=== PATIENT | male | born 1930 | race Caucasian/White ===

== ENCOUNTER 2017-12-07 17:13 | Inpatient (IN) | payer MEDICARE, OTHER ==
[~2017-12-07] VITALS: Ht 180.3 cm; Wt 79.8 kg
--- NOTE | 2017-12-07 17:40 | NUR ---
BIB SENT BY DR ALCANTARA FOR ELEVATED BUN/CR 84/7.5. PT AAOX3, [place]. PT STS HE HAS NO APPETITE FOR WEEKS, JUST TAKING ENSURE. ALSO HAVING ABD PAIN, N/V OFF & ON FOR MONTHS & DIARRHEA FOR OFF & ON FOR 2 WKS. PT SEEN & EVAL'D BY DR. NEGRETE. PT STABLE, NAD NOTED @ THIS TIME. PT USING HIS IPAD & f@ BS.
[2017-12-07] MEDS ORDERED: ROSU40TA22 PO (17:46)
[2017-12-07] MEDS ORDERED: EZET10TA27 PO (17:46)
[2017-12-07] MEDS ORDERED: ASPI-1152 PO (17:46)
[2017-12-07] MEDS ORDERED: FINA5TAB11 PO (17:46)
[2017-12-07] MEDS ORDERED: DESL5TAB PO (17:46)
[2017-12-07] MEDS ORDERED: OMEP40CA37 PO (17:46)
[2017-12-07] MEDS ORDERED: ACET-868 PO (17:46)
[2017-12-07] MEDS ORDERED: CHOL100044 PO (17:46)
[2017-12-07] MEDS ORDERED: METO-356 PO (17:46)
[2017-12-07] MEDS ORDERED: LEVO75TA7 PO (17:46)
[2017-12-07] MEDS ORDERED: FENO160T PO (17:46)
[2017-12-07] MEDS ORDERED: SERT50TA12 PO (17:46)
[2017-12-07 17:49] LABS: BASOPHILS % (AUTO) 0.5 % (0.0-2.0); EOSINOPHILS % (AUTO) 2.3 % (0.0-6.0); HEMATOCRIT 27 % (39-51); HEMOGLOBIN 8.8 g/dL (13.5-17.5); LYMPHOCYTES # (AUTO) 1.7 /CMM (0.8-4.8); LYMPHOCYTES % (AUTO) 25.9 % (20.0-44.0); MEAN CORPUSCULAR HEMOGLOBIN 31 PG (26.0-33.0); MEAN CORPUSCULAR HGB CONC 33 g/dl (31.0-36.0); MEAN CORPUSCULAR VOLUME 93 fL (80-96); MONOCYTES # (AUTO) 0.5 /CMM (0.1-1.30); MONOCYTES % (AUTO) 7.3 % (2.0-12.0); NEUTROPHILS # (AUTO) 4.1 /CMM (1.8-8.9); PLATELET COUNT (AUTO) 198 /CMM (150-450); RDW COEFFICIENT OF VARIATION 15.2 (11.5-15.0); RED BLOOD CELL COUNT(AUTO) 2.89 MIL/uL (4.5-6.0); WHITE BLOOD COUNT (AUTO) 6.4 K/uL (4.3-11.0)
[2017-12-07 18:07] LABS: INR 1.15 (0.87-1.13)
[2017-12-07 18:11] LABS: ALANINE AMINOTRANSFERASE 37 U/L (12-78); ALBUMIN 3.5 g/dL (3.4-5.0); ALKALINE PHOSPHATASE 45 U/L (46-116); ASPARTATE AMINOTRANSFERASE 52 U/L (15-37); BILIRUBIN,DIRECT 0.2 mg/dL (0.0-0.2); BILIRUBIN,TOTAL 0.4 mg/dL (0.2-1.0); CALCIUM, SERUM 8.4 mg/dL (8.5-10.1); CARBON DIOXIDE 23 mmol/L (21-32); CHLORIDE 101 mmol/L (98-107); CREATININE 7.3 mg/dL (0.6-1.3); GLUCOSE 124 mg/dL (74-106); LIPASE 791 U/L (73-393); POTASSIUM 3.8 mmol/L (3.5-5.1); SODIUM SERUM 137 mmol/L (136-145); TOTAL PROTEIN, SERUM 7.3 g/dL (6.4-8.2)
[2017-12-07 18:13] LABS: UREA NITROGEN, BLOOD 84 mg/dL (7-18)
--- NOTE | 2017-12-07 18:17 | NUR ---
CALLED DR MALAVE OFFICE, LEFT A VOICEMAIL.
[2017-12-07 18:37] LABS: APPEARANCE,URINE SL CLOUDY (CLEAR); BILIRUBIN,URINE NEGATIVE (NEGATIVE); BLOOD, URINE NEGATIVE Ery/uL (NEGATIVE); COLOR,URINE YELLOW (YELLOW); KETONES,URINE NEGATIVE (NEGATIVE); LEUKOCYTE ESTERASE ,URINE NEGATIVE (NEGATIVE); NITRITE, URINE NEGATIVE (NEGATIVE); PH,URINE 5.5 (5.0-8.0); PROTEIN,URINE NEGATIVE (NEGATIVE); UGLUCOSE NEGATIVE (NEGATIVE); UROBILINOGEN,URINE 0.2 EU/dL (0.2)
--- NOTE | 2017-12-07 19:21 | NUR ---
TELE [phone].
--- NOTE | 2017-12-07 19:45 | NUR ---
RN OPENING NOTES PT RECEIVED FROM ER VIA RO. A/OX4. ON ROOM AIR, BREATHING EVEN AND UNLABORED. DENIES SOB OR PAIN AT THIS TIME. IV TO LAC PATENT AND INTACT. ORIENTED PT TO ROOM AND CALL LIGHT. BED IN LOW/LOCKED POSITION WITH CALL LIGHT IN REACH. SIDE RAILS UPX2. WILL CONTINUE TO MONITOR
[2017-12-07 20:00] VITALS: BP 158/75
--- NOTE | 2017-12-07 20:46 | NUR ---
FAREED NOTES PAGED DR. ALCANTARA FOR ADMITTING ORDERS. AWAITING CALL BACK Addendum: 12/07/17 at 2115 by JED MCFADDEN RN DR. ALCANTARA CALLED BACK WITH ADMITTING ORDERS. ORDERS NOTED AND READBACK PER PROTOCOL. WILL CARRY OUT.
[2017-12-07] MEDS ORDERED: HOME MED MISCELLANEOUS XX SCH (22:00)
[2017-12-07] MEDS ORDERED: Fenofibrate 48 MG TABLET PO SCH (22:00)
[2017-12-07] MEDS ORDERED: SERTRALINE HCL 25 MG TABLET PO SCH (22:00)
[2017-12-07] MEDS: EZETIMIBE 10 MG TABLET PO SCH (22:00)
[2017-12-07] MEDS ORDERED: FINASTERIDE (5 MG) 5 MG TABLET PO SCH (22:00)
[2017-12-07] MEDS: CHOLECALCIFEROL 1,000 UNIT TABLET (VIT D3) PO SCH (22:00)
[2017-12-07] MEDS ORDERED: Fenofibrate 48 MG TABLET PO ONE (22:30)
[2017-12-07] MEDS ORDERED: SERTRALINE HCL 25 MG TABLET PO ONE (22:30)
[2017-12-07] MEDS ORDERED: ASPIRIN 81 MG TAB.CHEW PO ONE (22:30)
[2017-12-07] MEDS ORDERED: METOPROLOL SUCCINATE 25 MG TAB.SR.24H PO ONE (22:30)
[2017-12-07] MEDS ORDERED: EZETIMIBE 10 MG TABLET PO ONE (22:30)
[2017-12-07] MEDS ORDERED: CHOLECALCIFEROL 1,000 UNIT TABLET (VIT D3) PO ONE (22:30)
[2017-12-07] MEDS ORDERED: Fenofibrate 48 MG TABLET ONE (23:04)
--- NOTE | 2017-12-07 23:15 | NUR ---
MS/RN NOTES PER PT, HAS "SLIGHT ASPIRIN ALLERGY" HOWEVER STATES HE TAKES ASPIRIN AT HOME DAILY FOR RECENT MINI STROKES 2YEARS AGO, MEDICATION PROVIDED. DR. QUINTON PERALTA TO CONTINUE.
--- NOTE | 2017-12-07 23:16 | NUR ---
MS/RN NOTES VITAMIN D3 AND ZETIA SHOWING DUPLICATE ORDERS IN EMAR. ADMINISTERED THE ORDERED ONE TIME DOSE AND "NON-ADMINISTERED" THE DUPLICATES
--- NOTE | 2017-12-08 06:42 | NUR ---
MS/RN CLOSING NOTES PT WITH EYES CLOSED. EASILY AROUSABLE TO NAME. BREATHING EVEN AND UNLABORED. NO C/O SOB OR PAIN. IV TO LAC REMAINS PATENT AND INTACT. NO SIGNIFICANT CHANGES OVERNIGHT. ALL NEEDS MET. ASSISTED TO BATHROOM PRN. BED REMAINS IN LOW/LOCKED POSITION WITH CALL LIGHT IN REACH. SIDE RAILS UPX2. WILL ENDORSE TO DAY SHIFT RN ALICIA.
[2017-12-08 06:47] LABS: CALCIUM, SERUM 8.2 mg/dL (8.5-10.1); CARBON DIOXIDE 24 mmol/L (21-32); CHLORIDE 105 mmol/L (98-107); GLUCOSE 97 mg/dL (74-106); POTASSIUM 4.8 mmol/L (3.5-5.1); SODIUM SERUM 136 mmol/L (136-145)
[2017-12-08 06:49] LABS: CREATININE 7.5 mg/dL (0.6-1.3); UREA NITROGEN, BLOOD 83 mg/dL (7-18)
[2017-12-08 06:52] LABS: BASOPHILS % (AUTO) 0.5 % (0.0-2.0); EOSINOPHILS % (AUTO) 3.4 % (0.0-6.0); HEMATOCRIT 23 % (39-51); HEMOGLOBIN 7.6 g/dL (13.5-17.5); LYMPHOCYTES # (AUTO) 1.5 /CMM (0.8-4.8); LYMPHOCYTES % (AUTO) 26.2 % (20.0-44.0); MEAN CORPUSCULAR HEMOGLOBIN 32 PG (26.0-33.0); MEAN CORPUSCULAR HGB CONC 34 g/dl (31.0-36.0); MEAN CORPUSCULAR VOLUME 95 fL (80-96); MONOCYTES # (AUTO) 0.4 /CMM (0.1-1.30); MONOCYTES % (AUTO) 7.6 % (2.0-12.0); NEUTROPHILS # (AUTO) 3.5 /CMM (1.8-8.9); NEUTROPHILS % (AUTO) 62.3 % (43.0-81.0); PLATELET COUNT (AUTO) 147 /CMM (150-450); RDW COEFFICIENT OF VARIATION 15.9 (11.5-15.0); RED BLOOD CELL COUNT(AUTO) 2.39 MIL/uL (4.5-6.0); WHITE BLOOD COUNT (AUTO) 5.6 K/uL (4.3-11.0)
--- NOTE | 2017-12-08 07:05 | NUR ---
MS RN NOTES PATIENT IN BED EYES CLOSED, EASILY AROUSABLE, VERBALLY RESPONSIVE. NO ACUTE DISTRESS NOTED. BREATHING UNLABORED, NO SOB NOTED. IV ACCESS PATENT AND INTACT, NO REDNESS OR SWELLING NOTED. SAFETY MEASURES IN PLACE. CALL LIGHT WITHIN REACH.
[2017-12-08] MEDS ORDERED: PANTOPRAZOLE 40 MG TABLET.DR PO SCH (07:30)
[2017-12-08 08:00] VITALS: BP 127/63
[2017-12-08] MEDS: LEVOTHYROXINE SODIUM 75 MCG TABLET PO SCH (08:27)
[2017-12-08] MEDS ORDERED: LEVOTHYROXINE SODIUM 75 MCG TABLET PO SCH (08:30)
[2017-12-08] MEDS ORDERED: ACETAMINOPHEN 325 MG TABLET PO PRN (08:30)
[2017-12-08] MEDS: SERTRALINE HCL 25 MG TABLET PO SCH (08:32)
[2017-12-08] MEDS: CHOLECALCIFEROL 1,000 UNIT TABLET (VIT D3) PO SCH (08:32)
[2017-12-08] MEDS: FINASTERIDE (5 MG) 5 MG TABLET PO SCH (08:32)
[2017-12-08] MEDS: METOPROLOL SUCCINATE 25 MG TAB.SR.24H PO SCH (08:33)
[2017-12-08] MEDS: EZETIMIBE 10 MG TABLET PO SCH (08:33)
[2017-12-08] MEDS: ASPIRIN 81 MG TAB.CHEW PO SCH (08:34)
[2017-12-08] MEDS ORDERED: FENOFIBRATE NANOCRYS (145 MG) 145 MG TABLET PO SCH (09:00)
[2017-12-08] MEDS ORDERED: FENOFIBRATE 160MG PO SCH (09:00)
[2017-12-08] MEDS ORDERED: CHOLECALCIFEROL 1,000 UNIT TABLET (VIT D3) PO SCH (09:00)
[2017-12-08] MEDS ORDERED: Fenofibrate 48 MG TABLET PO SCH (09:00)
[2017-12-08] MEDS ORDERED: FINASTERIDE (5 MG) 5 MG TABLET PO SCH (09:00)
[2017-12-08] MEDS ORDERED: SERTRALINE HCL 50 MG TABLET PO SCH (09:00)
[2017-12-08] MEDS ORDERED: ASPIRIN EC 81 MG TABLET.DR PO SCH (09:00)
[2017-12-08] MEDS ORDERED: METOPROLOL SUCCINATE 25 MG TAB.SR.24H PO SCH (09:00)
[2017-12-08] MEDS ORDERED: EZETIMIBE 10 MG TABLET PO SCH (09:00)
[2017-12-08] MEDS: ENSURE ENLIVE CHOC 237 ML CAN PO SCH ×2 (09:12→16:30)
[2017-12-08] MEDS: DESLORATADINE 5 MG PO SCH (10:28)
--- NOTE | 2017-12-08 10:53 | NUR ---
MS RN NOTES RECEIVED NEW ORDERS FROM DR QUINTERO, NOTED AND CARRIED OUT.
--- NOTE | 2017-12-08 10:55 | NUR ---
MS RN NOTES SEEN AND EVALUATED BY DR WANG WITH NEW ORDERS MADE, NOTED AND CARRIED OUT.
[2017-12-08] MEDS ORDERED: EPOETIN ALFA (10,000 UNIT) 10,000 UNIT/ML VIAL IV ONE (11:00)
[2017-12-08] MEDS: IV D5/ 0.9% NACL 1,000 ML IV PRN (11:34)
[2017-12-08] MEDS: FLUTICASONE PROPIONATE 16 GM BOTTLE NS SCH ×2 (14:18→16:31)
[2017-12-08 16:00] VITALS: BP 130/70
--- NOTE | 2017-12-08 19:00 | NUR ---
MS RN NOTES PATIENT IN BED ALERT ORIENTED X 4. NO ACUTE DISTRESS NOTED. BREATHING UNLABORED, NO SOB NOTED. IV ACCESS PATENT AND INTACT, NO REDNESS OR SWELLING NOTED. DUE MEDICATIONS GIVEN, NO ASE NOTED. NEEDS ATTENDED AND ANTICIPATED. KEPT CLEAN, DRY AND COMFORTABLE. SAFETY MEASURES IN PLACE. CALL LIGHT WITHIN REACH. ENDORSED TO NIGHT NURSE FOR CONTINUITY OF CARE.
--- NOTE | 2017-12-08 19:25 | NUR ---
MS/RN OPENING NOTES PT AWAKE. A/OX4. REMAINS ON ROOM AIR, BREATHING EVEN AND UNLABORED. NO SOB OR PAIN AT THIS TIME. IV TO RFA PATENT AND INTACT RUNNING IVF ORDERED. BED REMAINS IN LOW/LOCKED POSITION WITH CALL LIGHT IN REACH AND UPPER SIDE RAILS UPX2. WILL CONTINUE TO MONITOR
[2017-12-08 20:00] VITALS: BP 127/66
[2017-12-08] MEDS: ATORVASTATIN 10 MG TABLET PO SCH (21:09)
[2017-12-08] MEDS ORDERED: CRESTOR 40 MG PO SCH (22:00)
[2017-12-08] MEDS ORDERED: HOME MED MISCELLANEOUS XX SCH (22:00)
--- NOTE | 2017-12-09 06:59 | NUR ---
MS/RN CLOSING NOTES PT RESTING COMFORTABLY IN BED. A/OX4. REMAINS ON ROOM AIR, BREATHING EVEN AND UNLABORED. NO SOB OR PAIN AT THIS TIME. NPO AFTER MIDNIGHT FOR PERMA CATH PLACEMENT THIS MORNING AT 0900, PT AWARE. CONSENT AND CHECKLIST SIGNED AND FLAGGED IN THE CHART. STOOL COLLECTED AND SENT TO LAB. IV TO RFA PATENT AND INTACT RUNNING IVF ORDERED. NO SIGNIFICANT CHANGES OVERNIGHT. ALL NEEDS MET. BED REMAINS IN LOW/LOCKED POSITION WITH CALL LIGHT IN REACH AND UPPER SIDE RAILS UPX2. WILL ENDORSE TO DAY SHIFT RN ALICIA.
--- NOTE | 2017-12-09 07:05 | NUR ---
MS RN NOTES PATIENT IN BED ALERT ORIENTED X 4. NO ACUTE DISTRESS NOTED. BREATHING UNLABORED, NO SOB NOTED. DENIED AND PAIN. IV ACCESS PATENT AND INTACT, NO REDNESS OR SWELLING NOTED. SAFETY MEASURES IN PLACE. CALL LIGHT WITHIN REACH. WILL CONTINUE TO MONITOR PATIENT. REMAINS NPO FOR SURGERY SCHEDULED.
[2017-12-09] MEDS: LEVOTHYROXINE SODIUM 75 MCG TABLET PO SCH (07:30)
[2017-12-09] MEDS: PANTOPRAZOLE 40 MG TABLET.DR PO SCH (07:30)
[2017-12-09 07:45] LABS: IRON, SERUM 69 ug/dl (50-175); TOTAL IRON BINDING CAPACITY 293 ug/dl (250-450)
[2017-12-09 07:51] LABS: BASOPHILS % (AUTO) 0.6 % (0.0-2.0); EOSINOPHILS % (AUTO) 3.2 % (0.0-6.0); HEMATOCRIT 22 % (39-51); HEMOGLOBIN 7.6 g/dL (13.5-17.5); LYMPHOCYTES # (AUTO) 1.2 /CMM (0.8-4.8); MEAN CORPUSCULAR HEMOGLOBIN 33 PG (26.0-33.0); MEAN CORPUSCULAR HGB CONC 34 g/dl (31.0-36.0); MEAN CORPUSCULAR VOLUME 96 fL (80-96); MONOCYTES # (AUTO) 0.4 /CMM (0.1-1.30); MONOCYTES % (AUTO) 8.4 % (2.0-12.0); NEUTROPHILS # (AUTO) 3.3 /CMM (1.8-8.9); NEUTROPHILS % (AUTO) 64.8 % (43.0-81.0); PLATELET COUNT (AUTO) 146 /CMM (150-450); RDW COEFFICIENT OF VARIATION 15.6 (11.5-15.0); RED BLOOD CELL COUNT(AUTO) 2.33 MIL/uL (4.5-6.0); WHITE BLOOD COUNT (AUTO) 5.1 K/uL (4.3-11.0)
[2017-12-09 08:00] VITALS: BP 116/63
[2017-12-09] MEDS: ENSURE ENLIVE CHOC 237 ML CAN PO SCH (08:00)
[2017-12-09] MEDS ORDERED: ANESTHESIA TRAY IN PYXIS 1 EA TRAY MC ONE (08:38)
[2017-12-09] MEDS ORDERED: LIDOCAINE HCL/PF 1% 30 ML SDV ONE (08:38)
[2017-12-09] MEDS ORDERED: HEPARIN SODIUM, PORCINE 1,000 UNIT/ML VIAL ONE (08:38)
[2017-12-09] MEDS: FLUTICASONE PROPIONATE 16 GM BOTTLE NS SCH ×2 (08:44→17:25)
--- NOTE | 2017-12-09 08:50 | NUR ---
MS RN NOTES PATIENT TRANSPORTED TO OPERATING ROOM IN STABLE CONDITION.
[2017-12-09 09:37] LABS: FERRITIN 1240 ng/mL (8-388)
--- NOTE | 2017-12-09 10:20 | NUR ---
MS RN NOTES PATIENT CAME BACK FROM OPERATING ROOM IN STABLE CONDITION, NO ACUTE DISTRESS NOTED. RCW DIALYSIS ACCESS INTACT SECURED WITH TRANSPARENT DRESSING. WITH NEW ORDERS MAY RESUME PREVIOUS DIET. NOTED AND CARRIED OUT.
[2017-12-09] MEDS: DESLORATADINE 5 MG PO SCH (10:27)
[2017-12-09] MEDS: EZETIMIBE 10 MG TABLET PO SCH (10:27)
[2017-12-09] MEDS: SERTRALINE HCL 25 MG TABLET PO SCH (10:28)
[2017-12-09] MEDS: CHOLECALCIFEROL 1,000 UNIT TABLET (VIT D3) PO SCH (10:28)
[2017-12-09] MEDS: FENOFIBRATE NANOCRYS (145 MG) 145 MG TABLET PO SCH (10:28)
[2017-12-09] MEDS: ASPIRIN 81 MG TAB.CHEW PO SCH (10:28)
[2017-12-09] MEDS: METOPROLOL SUCCINATE 25 MG TAB.SR.24H PO SCH (10:29)
[2017-12-09] MEDS: FINASTERIDE (5 MG) 5 MG TABLET PO SCH (10:31)
[2017-12-09] MEDS: ACETAMINOPHEN 325 MG TABLET PO PRN ×2 (11:59→19:41)
[2017-12-09 13:51] LABS: OCCULT BLOOD STOOL NEGATIVE (NEGATIVE)
--- NOTE | 2017-12-09 15:11 | NUR ---
MS RN NOTES SEEN AND EVALUATED BY DR PATRICK ALCANTARA WITH NEW ORDERS MADE, NOTED AND CARRIED OUT.
--- NOTE | 2017-12-09 15:20 | NUR ---
MS RN NOTES INSERTED BROWN CATHETER PER PROTOCOL. NO DISCOMFORT, NO PAIN, NO BLEEDING NOTED. PATIENT TOLERATED WELL. DRAINING CLEAR YELLOW URINE.
[2017-12-09 16:00] VITALS: BP 122/66
[2017-12-09] MEDS: NEPRO VAN 237 ML CAN PO SCH (17:24)
--- NOTE | 2017-12-09 18:44 | NUR ---
MS RN NOTES PATIENT IN BED ALERT ORIENTED X 4, FAMILY AT BEDSIDE. NO ACUTE DISTRESS NOTED. BREATHING UNLABORED, NO SOB NOTED. IV ACCESS PATENT AND INTACT, NO REDNESS OR SWELLING NOTED. BROWN CATHETER IN PLACED, DRAINING WELL. RCW DIALYSIS ACCESS SECURED WITH DRESSING. DUE MEDICATIONS GIVEN , NO ASE NOTED. NEEDS ATTENDED AND ANTICIPATED. KEPT CLEAN, DRY AND COMFORTABLE. SAFETY MEASURES IN PLACE. CALL LIGHT WITHIN REACH. WILL CONTINUE TO MONITOR PATIENT. WILL ENDORSE TO NIGHT NURSE FOR CONTINUITY OF CARE.
[2017-12-09 19:20] VITALS: BP 128/62
--- NOTE | 2017-12-09 19:25 | NUR ---
MS RN INITIAL NOTES Report received at bedside. Patient received in bed, awake and verbally responsive. Alert and oriented x4. Family at bedside. Perma-cath on right chest wall. IV on right forearm #22g: patent and intact with D5 NS @75ml/hr running. No SOB/labored breathing noted. On Nephro BID. Renal diet. Safety measures in place. Call light within reach. Will continue to monitor and assess patient.
--- NOTE | 2017-12-09 20:20 | NUR ---
MS RN NOTES Patient was brought in the bathroom. CARTOGRAPHY PROFESSOR came to the room to check on patient. CARTOGRAPHY PROFESSOR found patient standing by the sink. Patient stated, "I can't walk. I need to sit down." CARTOGRAPHY PROFESSOR assisted patient to sit on the floor and called for additional assist. Came to the room and patient remains sitting on the floor. Immediately asked the patient what happened and patient stated, "I couldn't walk. My legs are feeling weak. I asked to be sitted on the floor". Assisted patient back to bed along with CARTOGRAPHY PROFESSOR.
[2017-12-09] MEDS: ATORVASTATIN 10 MG TABLET PO SCH (21:03)
--- NOTE | 2017-12-09 22:20 | NUR ---
MS RN NOTES Bloody urine output noted in patient's barrett catheter. Patient aware. Charge nurse made aware. Paged Dr. Diez for further instructions. Awaiting orders. Addendum: 12/09/17 at 2238 by GERRY WEINBERG RN At 2227, Spoke to Dr. Diez and informed him regarding bloody urine output. No orders at the moment per .
[2017-12-09 23:22] LABS: OCCULT BLOOD STOOL NEGATIVE (NEGATIVE)
[2017-12-10 04:30] VITALS: BP 124/60
[2017-12-10] MEDS: ACETAMINOPHEN 325 MG TABLET PO PRN ×3 (04:55→21:30)
[2017-12-10 06:02] VITALS: BP 128/62
--- NOTE | 2017-12-10 07:41 | NUR ---
MS RN CLOSING NOTES Report given. Patient remained in bed, intermittently sleeping, easily aroused. Alert and oriented x3, have episodes of anxiousness and forgetfulness, verbally responsive. Complaints of pain on abdominal area with help of pain mgmt. S/P Right chest wall Perm-Cath placement with dialysis on 12/09. Next HD on 12/10. Diez cath in place with blood tinged urine output (MD aware). All needs anticipated and met. Safety measures in place. Bed in lowest position with bed alarm on and call light within reach. Endorsed to FAREED Garvey
[2017-12-10 08:00] VITALS: BP 146/71
--- NOTE | 2017-12-10 08:00 | NUR ---
rn notes received patient in the bed a/o x3, patient has no acute respiratory distress, v/s stable, encouraged to express feelings and concerns. scheduled medication administered, iv on right fa infusig D5 NS at 75 ml/hr intact, also patienthas a right chest wall PermCath intact. patient eating. no c/o pain at this time, needs attended a dnanticipated, call light within to reach, assist turn and reposition q 2hr. safety precaution maintained all the time.
[2017-12-10] MEDS: PANTOPRAZOLE 40 MG TABLET.DR PO SCH (08:54)
[2017-12-10] MEDS: FENOFIBRATE NANOCRYS (145 MG) 145 MG TABLET PO SCH (08:54)
[2017-12-10] MEDS: CHOLECALCIFEROL 1,000 UNIT TABLET (VIT D3) PO SCH (08:54)
[2017-12-10] MEDS: FINASTERIDE (5 MG) 5 MG TABLET PO SCH (08:54)
[2017-12-10] MEDS: SERTRALINE HCL 25 MG TABLET PO SCH (08:54)
[2017-12-10] MEDS: ASPIRIN 81 MG TAB.CHEW PO SCH (08:55)
[2017-12-10] MEDS: LEVOTHYROXINE SODIUM 75 MCG TABLET PO SCH (08:56)
[2017-12-10] MEDS: EZETIMIBE 10 MG TABLET PO SCH (08:56)
[2017-12-10] MEDS: DESLORATADINE 5 MG PO SCH (08:57)
[2017-12-10] MEDS: NEPRO VAN 237 ML CAN PO SCH ×2 (09:38→16:30)
[2017-12-10] MEDS: FLUTICASONE PROPIONATE 16 GM BOTTLE NS SCH ×2 (09:39→16:30)
[2017-12-10] MEDS: METOPROLOL SUCCINATE 25 MG TAB.SR.24H PO SCH (09:43)
--- NOTE | 2017-12-10 11:00 | NUR ---
rn notes patient getting HD at this time, stable resting in the bed, continued monitoring.
[2017-12-10 12:21] LABS: CALCIUM, SERUM 7.9 mg/dL (8.5-10.1); CARBON DIOXIDE 28 mmol/L (21-32); CHLORIDE 104 mmol/L (98-107); CREATININE 4.2 mg/dL (0.6-1.3); GLUCOSE 98 mg/dL (74-106); POTASSIUM 3.2 mmol/L (3.5-5.1); SODIUM SERUM 140 mmol/L (136-145); UREA NITROGEN, BLOOD 40 mg/dL (7-18)
[2017-12-10 12:24] LABS: BASOPHILS % (AUTO) 0.5 % (0.0-2.0); EOSINOPHILS % (AUTO) 1.1 % (0.0-6.0); HEMATOCRIT 22 % (39-51); HEMOGLOBIN 7.4 g/dL (13.5-17.5); LYMPHOCYTES # (AUTO) 1.2 /CMM (0.8-4.8); LYMPHOCYTES % (AUTO) 22.3 % (20.0-44.0); MEAN CORPUSCULAR HEMOGLOBIN 32 PG (26.0-33.0); MEAN CORPUSCULAR HGB CONC 33 g/dl (31.0-36.0); MEAN CORPUSCULAR VOLUME 95 fL (80-96); MONOCYTES # (AUTO) 0.3 /CMM (0.1-1.30); MONOCYTES % (AUTO) 6.4 % (2.0-12.0); NEUTROPHILS # (AUTO) 3.7 /CMM (1.8-8.9); NEUTROPHILS % (AUTO) 69.7 % (43.0-81.0); PLATELET COUNT (AUTO) 125 /CMM (150-450); RDW COEFFICIENT OF VARIATION 15.8 (11.5-15.0); RED BLOOD CELL COUNT(AUTO) 2.33 MIL/uL (4.5-6.0); WHITE BLOOD COUNT (AUTO) 5.4 K/uL (4.3-11.0)
--- NOTE | 2017-12-10 13:30 | NUR ---
RN NOTES HD FINISHED AT THIS TIME, V/S TAKEN BP-133/57, P-86, OUTPUT WAS 300 ML. PATIENT STABLE, NO ACUTE DISTRESS. ASSIST TURN AND REPOSTION Q 2 HR.
--- NOTE | 2017-12-10 14:42 | NUR ---
RN NOTES ADMINISTERED TYLENOL 650 MG PO PRN FOR HEADACHE PER PATIENT REQUEST, CONTINUED MONITORING.
[2017-12-10 16:00] VITALS: BP 129/60
--- NOTE | 2017-12-10 18:27 | NUR ---
RN NOTES PATIENT STABLE EATING AT THIS TIME. NO C/O PAIN , NO ACUTE RESPIRATORY DISTRESS. ASSIST TURN AND REPOSTION Q 2 HR. F/C DRAIN DARK RED OUTPUT. ASSIST TRUN AND REPOSTION Q 2 HR. ENDORSED ONCOMING NURSE FOR PLAN OF CARE
--- NOTE | 2017-12-10 19:25 | NUR ---
MS RN INITIAL NOTES Report received. Patient received in bed, awake and watching television. Alert and oriented x3. No SOB/labored breathing noted. Denies any pain at the moment. Not in any type of distress. Safety measures in place. Bed in lowest position with bed alarm and call light within reach. Reinforced to patient to use the call for any assistance needed. Will continue to monitor and assess patient.
[2017-12-10 20:00] VITALS: BP 123/87
[2017-12-10] MEDS: ATORVASTATIN 10 MG TABLET PO SCH (21:30)
[2017-12-11 00:54] LABS: OCCULT BLOOD STOOL NEGATIVE (NEGATIVE)
--- NOTE | 2017-12-11 01:43 | NUR ---
MS RN NOTES Patient in bed, sleeping comfortably, easily aroused. Not in any type of distress. Will continue to monitor
[2017-12-11] MEDS: IV D5/ 0.9% NACL 1,000 ML IV PRN (05:10)
[2017-12-11] MEDS: LEVOTHYROXINE SODIUM 75 MCG TABLET PO SCH (07:01)
[2017-12-11] MEDS: PANTOPRAZOLE 40 MG TABLET.DR PO SCH (07:01)
[2017-12-11] MEDS: ACETAMINOPHEN 325 MG TABLET PO PRN ×2 (07:01→21:26)
--- NOTE | 2017-12-11 07:09 | NUR ---
MS RN CLOSING NOTES Report given. Patient remained in bed, sleeping, easily aroused. Alert and oriented x3, have episodes of forgetfulness. Complained of generalized pain with help of pain mgmt. No SOB/labored breathing noted. Denies any pain at the moment. Not in any type of distress. Patient refused IV fluids. Diez cath in place with 650cc collected. All needs anticipated and met. Bed in lowest position with bed alarm and call light within reach. Endorsed to oncoming shift nurse
[2017-12-11 07:35] LABS: BASOPHILS % (AUTO) 0.2 % (0.0-2.0); EOSINOPHILS % (AUTO) 3.3 % (0.0-6.0); HEMATOCRIT 25 % (39-51); HEMOGLOBIN 8.5 g/dL (13.5-17.5); LYMPHOCYTES # (AUTO) 1.4 /CMM (0.8-4.8); LYMPHOCYTES % (AUTO) 23.2 % (20.0-44.0); MEAN CORPUSCULAR HEMOGLOBIN 32 PG (26.0-33.0); MEAN CORPUSCULAR HGB CONC 34 g/dl (31.0-36.0); MEAN CORPUSCULAR VOLUME 96 fL (80-96); MONOCYTES # (AUTO) 0.5 /CMM (0.1-1.30); MONOCYTES % (AUTO) 8.1 % (2.0-12.0); NEUTROPHILS % (AUTO) 65.2 % (43.0-81.0); PLATELET COUNT (AUTO) 129 /CMM (150-450); RDW COEFFICIENT OF VARIATION 15.6 (11.5-15.0); RED BLOOD CELL COUNT(AUTO) 2.63 MIL/uL (4.5-6.0); WHITE BLOOD COUNT (AUTO) 6.1 K/uL (4.3-11.0)
[2017-12-11 07:42] LABS: CALCIUM, SERUM 8.2 mg/dL (8.5-10.1); CARBON DIOXIDE 29 mmol/L (21-32); CHLORIDE 102 mmol/L (98-107); CREATININE 4.1 mg/dL (0.6-1.3); GLUCOSE 94 mg/dL (74-106); POTASSIUM 3.2 mmol/L (3.5-5.1); SODIUM SERUM 141 mmol/L (136-145); UREA NITROGEN, BLOOD 36 mg/dL (7-18)
[2017-12-11 08:00] VITALS: BP 123/65
[2017-12-11] MEDS: NEPRO VAN 237 ML CAN PO SCH ×2 (08:00→17:16)
--- NOTE | 2017-12-11 08:00 | NUR ---
RN NOTES RECEIVED PATIENT IN THE BED A/O X3, NO C/O PAIN AT THIS TIME, NO RESPIRATORY DISTRESS. ENCOURAGED TO EXPRESS FEELINGS AND CONCERNS. SCHEDULED MEDICATION ADMINISTERED, ASSIST TURN AND REPOSITION Q 2 HR, F/C DRAIN RED OUTPUT, CALL LIGHT WITHIN TO REACH, SAFETY PRECAUTION MAINTAINED ALL THE TIME.
[2017-12-11] MEDS: SERTRALINE HCL 25 MG TABLET PO SCH (09:59)
[2017-12-11] MEDS: FENOFIBRATE NANOCRYS (145 MG) 145 MG TABLET PO SCH (09:59)
[2017-12-11] MEDS: METOPROLOL SUCCINATE 25 MG TAB.SR.24H PO SCH (10:00)
[2017-12-11] MEDS: CHOLECALCIFEROL 1,000 UNIT TABLET (VIT D3) PO SCH (10:00)
[2017-12-11] MEDS: FINASTERIDE (5 MG) 5 MG TABLET PO SCH (10:00)
[2017-12-11] MEDS: ASPIRIN 81 MG TAB.CHEW PO SCH (10:00)
[2017-12-11] MEDS: EZETIMIBE 10 MG TABLET PO SCH (10:00)
[2017-12-11] MEDS: FLUTICASONE PROPIONATE 16 GM BOTTLE NS SCH ×2 (10:01→17:15)
[2017-12-11] MEDS: DESLORATADINE 5 MG PO SCH (10:02)
[2017-12-11] MEDS ORDERED: POTASSIUM CHLORIDE 20 MEQ TAB.PRT.SR PO SCH (11:00)
--- NOTE | 2017-12-11 13:00 | NUR ---
RN NOTES PATIENT STABLE SEEM BY DR ALCANTARA, AND DR LEONARD, PATIENT HAS NO ACUTE DISTRESS, CALL LIGHT WITHIN TO REACH, REFUSED PAIN AT THIS TIME. SAFETY PRECAUTION MAINTAINED ALL THE TIME.
[2017-12-11] MEDS ORDERED: POTASSIUM CHLORIDE 20 MEQ TAB.PRT.SR PO ONE (15:30)
[2017-12-11 15:46] VITALS: BP_SYST 112; BP_SYST 173; BP_DIAS 60; BP_DIAS 64
--- NOTE | 2017-12-11 18:30 | NUR ---
RN NOTES PATIENT STABLE, NO ACUTE RESPIRATORY DISTRESS, V/S STABLE, ASSIST TURN AND REPOSTION Q 2 HR. NEEDS ATTENDED AND ANTICIPATED. CALL LIGHT WITHIN TO REACH. ENDORSED ONCOMING NURSE FOR PLAN OF CARE.
--- NOTE | 2017-12-11 19:15 | NUR ---
MS RN INITIAL NOTES Report received. Patient received in bed, resting comfortably, awake and verbally responsive. Not in any type of distress. Diez cath in place. No SOB/labored breathing noted. Safety measures in place. Will continue to monitor and assess patient.
[2017-12-11 20:00] VITALS: BP 104/57
[2017-12-11] MEDS: ATORVASTATIN 10 MG TABLET PO SCH (21:26)
--- NOTE | 2017-12-12 06:47 | NUR ---
MS RN NOTE PT'S URINE OUTPUT NOTED TO BE 750 ML, RED COLOR. DR ALCANTARA IS AWARE. WILL ENDORSE TO AM RN TO F/U WITH DR. ALCANTARA IN AM.
--- NOTE | 2017-12-12 06:47 | NUR ---
MS RN CLOSING NOTES Patient remained in bed, slept well @ night,easily aroused. Alert and oriented x3, have episodes of forgetfulness. No SOB/labored breathing noted. Denies any pain at the moment. Not in any type of distress. Patient refused IV fluids. Diez cath in place with 750cc output. HD in am today. All needs anticipated and met. Bed in lowest position with bed alarm on and call light within reach. safety measures in place. will Endorse to oncoming shift nurse
[2017-12-12 07:11] LABS: CARBON DIOXIDE 30 mmol/L (21-32); CHLORIDE 103 mmol/L (98-107); CREATININE 4.3 mg/dL (0.6-1.3); GLUCOSE 95 mg/dL (74-106); MAGNESIUM 1.4 mg/dL (1.8-2.4); PHOSPHORUS 2.9 mg/dL (2.5-4.9); POTASSIUM 3.5 mmol/L (3.5-5.1); SODIUM SERUM 140 mmol/L (136-145); UREA NITROGEN, BLOOD 43 mg/dL (7-18)
[2017-12-12 07:14] LABS: BASOPHILS % (AUTO) 0.4 % (0.0-2.0); HEMATOCRIT 27 % (39-51); HEMOGLOBIN 8.9 g/dL (13.5-17.5); LYMPHOCYTES # (AUTO) 1.6 /CMM (0.8-4.8); LYMPHOCYTES % (AUTO) 22.1 % (20.0-44.0); MEAN CORPUSCULAR HEMOGLOBIN 32 PG (26.0-33.0); MEAN CORPUSCULAR HGB CONC 34 g/dl (31.0-36.0); MEAN CORPUSCULAR VOLUME 97 fL (80-96); MONOCYTES # (AUTO) 0.5 /CMM (0.1-1.30); MONOCYTES % (AUTO) 7.3 % (2.0-12.0); NEUTROPHILS # (AUTO) 4.7 /CMM (1.8-8.9); NEUTROPHILS % (AUTO) 66.2 % (43.0-81.0); PLATELET COUNT (AUTO) 137 /CMM (150-450); RDW COEFFICIENT OF VARIATION 15.5 (11.5-15.0); RED BLOOD CELL COUNT(AUTO) 2.76 MIL/uL (4.5-6.0); WHITE BLOOD COUNT (AUTO) 7.2 K/uL (4.3-11.0)
--- NOTE | 2017-12-12 07:20 | NUR ---
RN OPENING NOTES RECEIVED PT. IN BED AWAKE, A&OX4. BREATHING UNLABORED, AND EVENLY ON ROOM AIR. PT. DENIES PAIN. NO S/S OF ACUTE DISTRESS. PT.'S SKIN IS WARM AND DRY TO TOUCH. BROWN CATHETER HAS 150 CC OF RED AND CLEAR URINE. PT. IS AWAITING HEMODIALYSIS THIS MORNING. BED IS IN LOWEST, AND LOCKED POSITION. 2 SIDE RAILS UP, AND INSTRUCTED PT. TO USE CALL LIGHT FOR ASSISTANCE. ALL NEEDS MET. WILL CONTINUE TO ASSESS AND MONITOR.
[2017-12-12 08:00] VITALS: BP 123/68
[2017-12-12] MEDS ORDERED: EPOETIN ALFA (10,000 UNIT) 10,000 UNIT/ML VIAL SQ ONE (08:00)
[2017-12-12] MEDS: PANTOPRAZOLE 40 MG TABLET.DR PO SCH (08:31)
[2017-12-12] MEDS: LEVOTHYROXINE SODIUM 75 MCG TABLET PO SCH (08:31)
[2017-12-12] MEDS: ACETAMINOPHEN 325 MG TABLET PO PRN ×2 (08:32→18:52)
[2017-12-12] MEDS: NEPRO VAN 237 ML CAN PO SCH ×2 (08:32→18:30)
[2017-12-12] MEDS: FLUTICASONE PROPIONATE 16 GM BOTTLE NS SCH ×2 (08:34→17:11)
[2017-12-12] MEDS: METOPROLOL SUCCINATE 25 MG TAB.SR.24H PO SCH (09:00)
[2017-12-12] MEDS: SERTRALINE HCL 25 MG TABLET PO SCH (10:16)
[2017-12-12] MEDS: FENOFIBRATE NANOCRYS (145 MG) 145 MG TABLET PO SCH (10:17)
[2017-12-12] MEDS: CHOLECALCIFEROL 1,000 UNIT TABLET (VIT D3) PO SCH (10:17)
[2017-12-12] MEDS: ASPIRIN 81 MG TAB.CHEW PO SCH (10:17)
[2017-12-12] MEDS: EZETIMIBE 10 MG TABLET PO SCH (10:17)
[2017-12-12] MEDS: FINASTERIDE (5 MG) 5 MG TABLET PO SCH (10:18)
[2017-12-12] MEDS: DESLORATADINE 5 MG PO SCH (10:20)
--- NOTE | 2017-12-12 10:30 | NUR ---
PT. WILL RECEIVE HEMODIALYSIS TODAY. WILL HOLD BLOOD PRESSURE MEDICATION.
[2017-12-12] MEDS ORDERED: ALTEPLASE CATHFLO 2 MG/VIAL IV ONE (13:00)
[2017-12-12 13:10] LABS: CALCITRIOL VIT D,1, 25 DIHYDRO 14.3 pg/mL (19.9-79.3)
[2017-12-12 16:00] VITALS: BP 135/69
[2017-12-12] MEDS ORDERED: Magnesium 1GM/D5W 100ML PREMIX PIGGYBACK IV ONE (16:30)
--- NOTE | 2017-12-12 16:45 | NUR ---
RN NOTES PER PHYSICAL THERAPIST. WHILE PT. WAS WALKING WITH ASSISTANCE PT.'S REPORTED FEELING DIZZY, AND PT.'S KNEES BUCKLED. A STONEWORK SUPERVISOR NEARBY HELPED SIT PT. DOWN TO A CHAIR IN PT.'S ROOM. PT.'S KNEES DID NOT TOUCH THE FLOOR PER PHYSICAL THERAPIST, NO INJURIES NOTED.
[2017-12-12] MEDS ORDERED: METOPROLOL SUCCINATE 25 MG TAB.SR.24H PO ONE (17:00)
[2017-12-12] MEDS: Magnesium 1GM/D5W 100ML PREMIX 100 ML IV SCH ×2 (18:30→20:13)
--- NOTE | 2017-12-12 19:25 | NUR ---
RN CLOSING NOTES PT. IN BED AWAKE WATCHING TV, A&OX4. BREATHING UNLABORED, AND EVENLY ON ROOM AIR. PT. DENIES PAIN. NO S/S OF ACUTE DISTRESS. PT.'S SKIN IS WARM AND DRY TO TOUCH. REMOVED FROM BROWN CATHETER 450 CC OF RED URINE. BED IS IN LOWEST, AND LOCKED POSITION. 2 SIDE RAILS UP, AND INSTRUCTED PT. TO USE CALL LIGHT FOR ASSISTANCE. ALL NEEDS MET. WILL ENDORSE REPORT TO NURSE.
--- NOTE | 2017-12-12 19:53 | NUR ---
RN MS OPENING NOTES RECEIVED PATIENT IN BED AWAKE, ALERT AND ORIENTED X4. IN STABLE CONDITION. BREATHING EVEN AND UNLABORED. NO SOB NOTED. NO COMPLAINTS OF PAIN OR DISCOMFORT. IV LINE ON RIGHT FA #22 INTACT AND PATENT. RIGHT CHEST WALL PERMACATH INTACT AND PATENT. PATIENT HAS BROWN CATH INTACT AND DRAINING RED TINGED URINE. ALL OTHER NEEDS ATTENDED TO. CALL LIGHT WITHIN REACH. BED ON LOWEST LOCKED POSITION. WILL CONTINUE TO MONITOR.
[2017-12-12 20:00] VITALS: BP 115/61
[2017-12-12] MEDS: ATORVASTATIN 10 MG TABLET PO SCH (21:24)
[2017-12-13] MEDS: LEVOTHYROXINE SODIUM 75 MCG TABLET PO SCH (06:30)
--- NOTE | 2017-12-13 07:00 | NUR ---
RN MS CLOSING NOTES PATIENT RESTING IN BED. A/O X3 WHEN AWAKE. IN STABLE CONDITION. BREATHING EVEN AND UNLABORED. NO SOB. NO COMPLAINTS OF PAIN OR DISCOMFORT. IV ON RIGHT FA#22 INTACT AND PATENT. RCW PERMA CATH INTACT AND PATENT. BROWN CATH INTACT AND DRAINING - BLOOD TINGED URINE. KEPT CLEAN, DRY, AND COMFORTABLE. ALL OTHER NEEDS ATTENDED TO. CALL LIGHT WITHIN REACH. BED ON LOWEST POSITION. WILL ENDORSE TO ONCOMING NURSE FOR CONTINUITY OF CARE.
[2017-12-13 08:00] VITALS: BP_SYST 114; BP_SYST 141; BP_DIAS 60
--- NOTE | 2017-12-13 08:12 | NUR ---
RN MS OPENING NOTES RECEIVED PATIENT IN BED AWAKE. ALERT AND ORIENTED X4. IN STABLE CONDITION. RESPIRATIONS EVEN AND UNLABORED. NO SOB NOTED. NO COMPLAINTS OF PAIN OR DISCOMFORT. IV LINE ON RIGHT FA #22 INTACT AND PATENT. RIGHT UPPER CHEST PERMA CATH INTACT AND PATENT NO S/S OF BLEEDING NOTED. KEPT CLEAN DRY AND COMFORTABLE. CALL LIGHT WITHIN REACH. BED ON LOWEST LOCKED POSITION. WILL CONTINUE TO MONITOR.
[2017-12-13] MEDS: ASPIRIN 81 MG TAB.CHEW PO SCH (08:38)
[2017-12-13] MEDS: SERTRALINE HCL 25 MG TABLET PO SCH (08:39)
[2017-12-13] MEDS: EZETIMIBE 10 MG TABLET PO SCH (08:39)
[2017-12-13] MEDS: PANTOPRAZOLE 40 MG TABLET.DR PO SCH (08:39)
[2017-12-13] MEDS: FINASTERIDE (5 MG) 5 MG TABLET PO SCH (08:40)
[2017-12-13] MEDS: FENOFIBRATE NANOCRYS (145 MG) 145 MG TABLET PO SCH (08:40)
[2017-12-13] MEDS: METOPROLOL SUCCINATE 25 MG TAB.SR.24H PO SCH (08:40)
[2017-12-13] MEDS: CHOLECALCIFEROL 1,000 UNIT TABLET (VIT D3) PO SCH (08:40)
[2017-12-13] MEDS: DESLORATADINE 5 MG PO SCH (08:44)
[2017-12-13] MEDS: FLUTICASONE PROPIONATE 16 GM BOTTLE NS SCH ×2 (08:49→16:39)
[2017-12-13] MEDS: NEPRO VAN 237 ML CAN PO SCH ×2 (09:21→16:39)
--- NOTE | 2017-12-13 12:15 | NUR ---
RN NOTES/ DISCHARGE FOLLOW UP PT SEEN AND EVALUATED BY DR. ALCANTARA, PER MD PT IS TO BE DISCHARGE TO [facility], BROWN CATHETER IS TO STAY IN PLACE, SKIN INTACT NO PICTURES NEEDED WILL CONTINUE TO ASSIST WITH DISCHARGE PROCESS
--- NOTE | 2017-12-13 15:08 | NUR ---
RN NOTES/DISCHARGE FOLLOW UP PT TO BE DISCHARGED TO [facility] ALL DISCHARGE PAPERWORK REVIEWED WITH PT, WILL CONTINUE TO ASSIST WITH DISCHARGE PROCESS
[2017-12-13 16:00] VITALS: BP 123/63
--- NOTE | 2017-12-13 18:40 | NUR ---
RN NOTES DISCHARGE PATIENT WITH DISCHARGE ORDERS, SKIN INTACT NO PICTURES NEEDED. IV ACCESS AND ID BAND REMOVED WITH NO ASE NO SHI. RESPIRATIONS EVEN AND UNLABORED NO DISTRESS NOTED. ALL DISCHARGE INSTRUCTIONS REVIEWED WITH PATIENT AND SNF RN HIWOT AND EMT TRANSPORT FOR CONTINUITY OF CARE, NOTED WITH VERBAL UNDERSTANDING NOTED. ALL DUE MEDICATIONS GIVEN WITH NO ASE NOTED. ALL BELONGINGS ACCOUNTED FOR MEDICATIONS RETURNED TO PATIENT. PATIENT DISCHARGED IN STABLE CONDITION
== END 2017-12-13 18:42 | DRG 674 ==
LOC: ER 17:17 → TELE 19:33 → MED 21:22
PROVIDERS: ADMIT Internal Medicine; ATTEND Internal Medicine
PROC: 02HV33Z Insertion of Infusion Device into Superior Vena Cava, Percutaneous Approach (ICD-10-PCS; 2017-12-09)
PROC: B518YZA Fluoroscopy of Superior Vena Cava using Other Contrast, Guidance (ICD-10-PCS; 2017-12-09)
PROC: 5A1D70Z Performance of Urinary Filtration, Intermittent, Less than 6 Hours Per Day (ICD-10-PCS; 2017-12-09)
PROC: 0JHD3XZ Insertion of Tunneled Vascular Access Device into Right Upper Arm Subcutaneous Tissue and Fascia, Percutaneous Approach (ICD-10-PCS; principal; 2017-12-09 09:00)
PROC: 5A1D70Z Performance of Urinary Filtration, Intermittent, Less than 6 Hours Per Day (ICD-10-PCS; 2017-12-10)
PROC: 5A1D70Z Performance of Urinary Filtration, Intermittent, Less than 6 Hours Per Day (ICD-10-PCS; 2017-12-12)
PROC: 5A1D70Z Performance of Urinary Filtration, Intermittent, Less than 6 Hours Per Day (ICD-10-PCS; 2017-12-13)
DX: N17.9 Acute kidney failure, unspecified (principal); I12.0 Hypertensive chronic kidney disease with stage 5 chronic kidney disease or end stage renal disease; N13.8 Other obstructive and reflux uropathy; E46 Unspecified protein-calorie malnutrition; N18.6 End stage renal disease; I25.10 Atherosclerotic heart disease of native coronary artery without angina pectoris; D63.1 Anemia in chronic kidney disease; K21.9 Gastro-esophageal reflux disease without esophagitis; R31.0 Gross hematuria; E03.9 Hypothyroidism, unspecified; Z86.73 Personal history of transient ischemic attack (TIA), and cerebral infarction without residual deficits; Z88.6 Allergy status to analgesic agent; E83.9 Disorder of mineral metabolism, unspecified; N13.9 Obstructive and reflux uropathy, unspecified; F42.9 Obsessive-compulsive disorder, unspecified; Z68.24 Body mass index [BMI] 24.0-24.9, adult; N40.1 Benign prostatic hyperplasia with lower urinary tract symptoms; R55 Syncope and collapse; T83.091A Other mechanical complication of indwelling urethral catheter, initial encounter; Y84.6 Urinary catheterization as the cause of abnormal reaction of the patient, or of later complication, without mention of misadventure at the time of the procedure; Y92.238 Other place in hospital as the place of occurrence of the external cause
CPT/HCPCS: 36415; 71045-TC; 76770-TC; 80048-TC; 80076-TC; 81000-TC; 82272-TC; 82306; 82550-TC; 82652; 82728-TC; 83540-TC; 83690-TC; 83735-TC; 83970; 84100-TC; 85025-TC; 85730-TC; 86704; 86705; 86706; 86850-TC; 87081-TC; 87340; 90935-TC; 97110-TC; 97530-TC; A4606; J0885; J1644; J2997; J3475; J3490; J7050; Z7610